=== PATIENT | male | born 1970 | race Two or more races ===

== ENCOUNTER 2023-05-03 15:35 | Inpatient (IN) | payer OTHER ==
[~2023-05-03] VITALS: Ht 167.6 cm; Wt 82.0 kg
[2023-05-03 16:22] VITALS: RESP 16; O2SAT 95
[2023-05-03] MEDS ORDERED: ONDANSETRON HCL 4 MG/2 ML VIAL IV PRN (17:00)
[2023-05-03 18:04] VITALS: BP 136/87; PULSE 55; RESP 16; TEMP 98; O2SAT 95
[2023-05-03 20:05] LABS: Basophils # (auto) 0 10 ^3/uL (0-0.2); Basophils % (auto) 0.3 % (0.0-2.0); Eosinophils # (auto) 0.2 10 ^3/uL (0-0.8); Eosinophils % (auto) 2.5 % (0.0-7.0); Hematocrit 45.3 % (41.0-53.0); Hemoglobin 15.9 g/dL (13.5-17.5); Lymphocytes # (auto) 4.1 10 ^3/uL (0.4-5.4); Lymphocytes % (auto) 44.8 % (10.0-50.0); Mean Corpuscular Hemoglobin 29.6 pg (28.0-32.0); Mean Corpuscular Hgb Conc. 35.1 g/dL (32.0-36.0); Mean Corpuscular Volume 84.3 fL (80.0-100.0); Monocytes # (auto) 0.5 10 ^3/uL (0-1.3); Monocytes % (auto) 4.9 % (0.0-12.0); Neutrophils # (auto) 4.4 10 ^3/uL (1.6-8.6); Neutrophils % (auto) 47.5 % (37.0-80.0); Nucleated Red Blood Cells % 0.4 %; Red Blood Cells 5.38 10^6/uL (4.5-5.90); Red Cell Distribution Width 14.4 % (11.8-14.3); White Blood Cell 9.3 10^3/uL (4.4-10.8)
[2023-05-03 20:19] LABS: INR 1.13 (0.9-1.15); Partial Thromboplastin Time 33.1 SEC (24.5-34.5); Prothrombin Time 11.8 sec (9.3-11.8)
[2023-05-03 20:29] LABS: Alanine Aminotransferase 44 U/L (7-40); Albumin 4.5 g/dL (3.2-4.8); Alkaline Phosphatase 82 U/L (46-116); Anion Gap 6 (5-15); Aspartate Aminotransferase 21 U/L (13-40); BUN/Creatinine Ratio 12.2 (10.0-20.0); Bilirubin, Total 0.9 mg/dL (0.2-1.0); Blood Urea Nitrogen 14 mg/dL (9-23); Calcium 9.6 mg/dL (8.7-10.4); Carbon Dioxide 26 mmol/L (20-30); Chloride 105 mmol/L (98-107); Glucose 143 mg/dL (74-106); Potassium 3.7 mmol/L (3.5-5.1); Sodium 137 mmol/L (136-145); Total Protein 8.2 g/dL (5.7-8.2)
[2023-05-03 21:53] VITALS: BP 118/88; PULSE 72; RESP 20; TEMP 98.3; O2SAT 93
[2023-05-04] VITALS (7 sets, daily range): BP systolic 112–145; BP diastolic 78–95; PULSE 61–81; RESP 16–20; TEMP 97.6–98.2; O2SAT 93–95
[2023-05-04 05:43] LABS: Basophils # (auto) 0 10 ^3/uL (0-0.2); Basophils % (auto) 0.6 % (0.0-2.0); Eosinophils # (auto) 0.2 10 ^3/uL (0-0.8); Eosinophils % (auto) 2.7 % (0.0-7.0); Hematocrit 45.1 % (41.0-53.0); Hemoglobin 15.5 g/dL (13.5-17.5); Lymphocytes % (auto) 47.6 % (10.0-50.0); Mean Corpuscular Hemoglobin 29.3 pg (28.0-32.0); Mean Corpuscular Hgb Conc. 34.4 g/dL (32.0-36.0); Monocytes # (auto) 0.7 10 ^3/uL (0-1.3); Monocytes % (auto) 8.8 % (0.0-12.0); Neutrophils # (auto) 3.4 10 ^3/uL (1.6-8.6); Neutrophils % (auto) 40.3 % (37.0-80.0); Nucleated Red Blood Cells % 0.2 %; Red Blood Cells 5.31 10^6/uL (4.5-5.90); Red Cell Distribution Width 14.5 % (11.8-14.3); White Blood Cell 8.4 10^3/uL (4.4-10.8)
[2023-05-04] MEDS: ENOXAPARIN SOD 40 MG/0.4 ML SYRINGE SC SCH (10:04)
[2023-05-04] MEDS: PANTOPRAZOLE 40 MG TAB PO SCH (10:04)
[2023-05-04] MEDS: traMADol HCL 50 MG TAB PO PRN (12:39)
[2023-05-04] MEDS ORDERED: ACETAMINOPHEN 325 MG TAB PO PRN (22:00)
[2023-05-04] MEDS: ACETAMINOPHEN 325 MG TAB PO PRN (23:54)
[2023-05-05 05:00] VITALS: BP 121/87; PULSE 63; RESP 18; TEMP 97.8; O2SAT 98
[2023-05-05 08:30] VITALS: BP 143/91; PULSE 76; RESP 20; TEMP 97.6
[2023-05-05 08:39] VITALS: BP 143/91; PULSE 76; RESP 20; TEMP 97.6; O2SAT 96
[2023-05-05] MEDS: PANTOPRAZOLE 40 MG TAB PO SCH ×2 (09:02→10:00)
[2023-05-05] MEDS: ACETAMINOPHEN 325 MG TAB PO PRN ×2 (09:05→18:49)
[2023-05-05] MEDS: ENOXAPARIN SOD 40 MG/0.4 ML SYRINGE SC SCH (09:54)
[2023-05-05 12:34] VITALS: BP 126/90; PULSE 69; RESP 20; TEMP 98.1; O2SAT 97
[2023-05-05 16:36] VITALS: BP 117/87; PULSE 75; RESP 20; TEMP 98; O2SAT 93
[2023-05-05 22:00] VITALS: BP 137/84; PULSE 64; RESP 18; TEMP 97.7; O2SAT 92
[2023-05-06] MEDS: ACETAMINOPHEN 325 MG TAB PO PRN ×4 (00:23→18:30)
[2023-05-06 05:00] VITALS: BP 142/87; PULSE 58; RESP 18; TEMP 97.6; O2SAT 95
[2023-05-06 07:06] LABS: Free Thyroxine Index 2.8 (1.2-4.9); Thyroxine (T4) 10.3 ug/dL (4.5-12.0)
[2023-05-06 09:00] VITALS: BP 132/95; PULSE 77; RESP 17; TEMP 97.9; O2SAT 96
[2023-05-06] MEDS: ENOXAPARIN SOD 40 MG/0.4 ML SYRINGE SC SCH (09:36)
[2023-05-06] MEDS: PANTOPRAZOLE 40 MG TAB PO SCH (09:37)
[2023-05-06 12:51] VITALS: BP 121/89; PULSE 65; RESP 17; TEMP 97.5; O2SAT 93
[2023-05-06 17:00] VITALS: BP 129/93; PULSE 68; RESP 17; TEMP 97.7; O2SAT 96
[2023-05-06 20:00] VITALS: PULSE 68; RESP 18; O2SAT 95
[2023-05-06 22:00] VITALS: BP 138/89; PULSE 68; RESP 18; TEMP 98; O2SAT 95
[2023-05-07] VITALS (7 sets, daily range): BP systolic 108–176; BP diastolic 73–91; PULSE 60–79; RESP 17–19; TEMP 97.9–98.6; O2SAT 95–97
[2023-05-07] MEDS: ACETAMINOPHEN 325 MG TAB PO PRN ×3 (03:51→21:38)
[2023-05-07] MEDS: ENOXAPARIN SOD 40 MG/0.4 ML SYRINGE SC SCH (09:27)
[2023-05-07] MEDS: PANTOPRAZOLE 40 MG TAB PO SCH (09:27)
[2023-05-07] MEDS ORDERED: GADOTERATE MEG 10 MMOL/20ml INJ (0.5MMOL/ml) IV ONE (09:55)
[2023-05-08] VITALS (7 sets, daily range): BP systolic 109–129; BP diastolic 84–100; PULSE 64–111; RESP 17–20; TEMP 97.5–98.8; O2SAT 93–96
[2023-05-08] MEDS: ENOXAPARIN SOD 40 MG/0.4 ML SYRINGE SC SCH (08:58)
[2023-05-08] MEDS: PANTOPRAZOLE 40 MG TAB PO SCH (08:59)
[2023-05-09] VITALS (7 sets, daily range): BP systolic 112–146; BP diastolic 70–91; PULSE 63–79; RESP 14–20; TEMP 97.4–98.3; O2SAT 93–96
[2023-05-09] MEDS: ACETAMINOPHEN 325 MG TAB PO PRN ×2 (02:15→17:12)
[2023-05-09] MEDS: PANTOPRAZOLE 40 MG TAB PO SCH (11:17)
[2023-05-09] MEDS: ENOXAPARIN SOD 40 MG/0.4 ML SYRINGE SC SCH (11:17)
[2023-05-10 05:00] VITALS: BP 126/87; PULSE 70; RESP 18; TEMP 98; O2SAT 97
[2023-05-10 09:17] VITALS: BP 121/55; PULSE 89; RESP 18; TEMP 97.4; O2SAT 95
[2023-05-10] MEDS: ENOXAPARIN SOD 40 MG/0.4 ML SYRINGE SC SCH (11:10)
[2023-05-10] MEDS: PANTOPRAZOLE 40 MG TAB PO SCH (11:10)
[2023-05-10] MEDS: ACETAMINOPHEN 325 MG TAB PO PRN ×2 (11:14→19:46)
[2023-05-10 13:00] VITALS: BP 126/94; PULSE 89; RESP 16; TEMP 97.2; O2SAT 95
[2023-05-10 13:27] VITALS: BP 126/94; PULSE 84; RESP 16; TEMP 97.2; O2SAT 95
[2023-05-10 19:30] VITALS: PULSE 81; RESP 17; O2SAT 95
[2023-05-10 22:00] VITALS: BP 123/93; PULSE 70; RESP 18; TEMP 97.8; O2SAT 94
[2023-05-11] VITALS (7 sets, daily range): BP systolic 127–144; BP diastolic 75–107; PULSE 64–95; RESP 17–20; TEMP 97.8–98.5; O2SAT 91–100
[2023-05-11] MEDS: ENOXAPARIN SOD 40 MG/0.4 ML SYRINGE SC SCH (11:06)
[2023-05-11] MEDS: PANTOPRAZOLE 40 MG TAB PO SCH (11:06)
[2023-05-11] MEDS: traMADol HCL 50 MG TAB PO PRN (21:57)
[2023-05-12 05:00] VITALS: BP 97/68; PULSE 54; RESP 19; TEMP 98.4; O2SAT 94
[2023-05-12 08:00] VITALS: BP 125/88; PULSE 56; RESP 18; TEMP 97.8; O2SAT 100
[2023-05-12 09:00] VITALS: BP 125/88; PULSE 56; RESP 18; TEMP 97.8; O2SAT 99
[2023-05-12] MEDS: ENOXAPARIN SOD 40 MG/0.4 ML SYRINGE SC SCH (09:31)
[2023-05-12] MEDS: PANTOPRAZOLE 40 MG TAB PO SCH (09:31)
[2023-05-12] MEDS: ACETAMINOPHEN 325 MG TAB PO PRN (09:35)
[2023-05-12 17:00] VITALS: BP 121/87; PULSE 65; RESP 20; TEMP 98.8; O2SAT 98
[2023-05-12 18:00] VITALS: O2SAT 95
[2023-05-12] MEDS: traMADol HCL 50 MG TAB PO PRN (21:25)
[2023-05-12 22:00] VITALS: BP 117/80; PULSE 64; RESP 16; TEMP 97.9; O2SAT 96
[2023-05-13] VITALS (7 sets, daily range): BP systolic 104–145; BP diastolic 66–96; PULSE 56–87; RESP 16–20; TEMP 97.5–98.6; O2SAT 90–100
[2023-05-13] MEDS: PANTOPRAZOLE 40 MG TAB PO SCH (11:11)
[2023-05-13] MEDS: ENOXAPARIN SOD 40 MG/0.4 ML SYRINGE SC SCH (11:12)
[2023-05-13] MEDS: ACETAMINOPHEN 325 MG TAB PO PRN (19:43)
[2023-05-13] MEDS: PYRIDOstigmine BROMIDE 60 MG TAB PO SCH (19:44)
[2023-05-14 05:00] VITALS: BP 122/71; PULSE 71; RESP 18; TEMP 98.3; O2SAT 96
[2023-05-14] MEDS: PYRIDOstigmine BROMIDE 60 MG TAB PO SCH ×2 (05:42→14:40)
[2023-05-14 08:00] VITALS: BP 117/82; PULSE 74; RESP 18; RESP 20; TEMP 98.6; O2SAT 96
[2023-05-14 09:00] VITALS: BP 109/68; PULSE 62; RESP 20; TEMP 97.9; O2SAT 96
[2023-05-14 13:00] VITALS: BP 109/71; PULSE 75; RESP 20; TEMP 98; O2SAT 94
[2023-05-14] MEDS: PANTOPRAZOLE 40 MG TAB PO SCH (14:40)
[2023-05-14] MEDS: ENOXAPARIN SOD 40 MG/0.4 ML SYRINGE SC SCH (14:40)
== END 2023-05-14 18:51 | DRG 57 ==
LOC: EEVIPCON 15:36 → WEST WING 15:36 → UNDOADMIN 15:36 → EEVIPCON 16:54 → WEST WING 16:54
PROVIDERS: ADMIT Internal Medicine; ATTEND Internal Medicine
DX: G70.01 Myasthenia gravis with (acute) exacerbation (principal); M48.02 Spinal stenosis, cervical region; R13.10 Dysphagia, unspecified; Z82.5 Family history of asthma and other chronic lower respiratory diseases; Z88.0 Allergy status to penicillin
CPT/HCPCS: 36415; 70551; 71045; 72141; 72142; 72148; 80053; 84443; 85025; 85610; 85730; 86703; 86803; 94010; 94640; 97110; 97116; 97163; 97530; G0378; J1561

== ENCOUNTER 2023-06-19 15:49 | Inpatient (IN) | payer OTHER ==
[~2023-06-19] VITALS: Ht 167.6 cm; Wt 84.0 kg
[2023-06-19 17:01] LABS: Basophils # (auto) 0 10 ^3/uL (0-0.2); Basophils % (auto) 0.5 % (0.0-2.0); Eosinophils # (auto) 0.2 10 ^3/uL (0-0.8); Eosinophils % (auto) 2.3 % (0.0-7.0); Hematocrit 45.3 % (41.0-53.0); Hemoglobin 15.3 g/dL (13.5-17.5); Lymphocytes # (auto) 4.4 10 ^3/uL (0.4-5.4); Lymphocytes % (auto) 49.9 % (10.0-50.0); Mean Corpuscular Hemoglobin 29.2 pg (28.0-32.0); Mean Corpuscular Hgb Conc. 33.8 g/dL (32.0-36.0); Mean Corpuscular Volume 86.4 fL (80.0-100.0); Monocytes # (auto) 0.7 10 ^3/uL (0-1.3); Monocytes % (auto) 8.3 % (0.0-12.0); Neutrophils # (auto) 3.4 10 ^3/uL (1.6-8.6); Nucleated Red Blood Cells % 0.3 %; Red Blood Cells 5.23 10^6/uL (4.5-5.90); Red Cell Distribution Width 14.7 % (11.8-14.3); White Blood Cell 8.8 10^3/uL (4.4-10.8)
[2023-06-19 17:23] LABS: Alanine Aminotransferase 45 U/L (7-40); Albumin 4.6 g/dL (3.2-4.8); Alkaline Phosphatase 88 U/L (46-116); Anion Gap 7 (5-15); Aspartate Aminotransferase 28 U/L (13-40); BUN/Creatinine Ratio 7.2 (10.0-20.0); Blood Urea Nitrogen 7 mg/dL (9-23); Calcium 9.7 mg/dL (8.7-10.4); Carbon Dioxide 25 mmol/L (20-30); Chloride 107 mmol/L (98-107); Glucose 83 mg/dL (74-106); Potassium 3.7 mmol/L (3.5-5.1); Sodium 139 mmol/L (136-145)
[2023-06-19 17:24] LABS: Total Protein 8.2 g/dL (5.7-8.2)
[2023-06-19 21:16] LABS: Urine Bacteria NONE SEEN /hpf (None Seen); Urine Blood Negative /uL (Negative); Urine Clarity Clear (Clear); Urine Color Yellow (Yellow); Urine Mucus FEW (None Seen); Urine Protein, UAD Negative (Negative); Urine Specific Gravity 1.023 (1.001-1.035); Urine WBC <1 /hpf (0 - 3)
[2023-06-19] MEDS ORDERED: MORPHINE SULFATE INJ 2 MG/ml SYRG IV PRN (21:30)
[2023-06-19] MEDS ORDERED: D5W/SOD CHL 0.45% 1,000 ML IV ONE (21:30)
[2023-06-19] MEDS ORDERED: NITROGLYCERIN 0.4 MG SL TAB SL PRN (21:30)
[2023-06-19] MEDS: PYRIDOstigmine BROMIDE 60 MG TAB PO SCH (22:00)
[2023-06-19] MEDS: ATORVASTATIN 20 MG TAB PO SCH (22:17)
[2023-06-20] MEDS: PROPRANOLOL HCL 20 MG TAB PO SCH (10:09)
[2023-06-20 10:12] VITALS: BP 147/102; PULSE 67; RESP 15; RESP 18; TEMP 97.7; O2SAT 97
[2023-06-20] MEDS: PYRIDOstigmine BROMIDE 60 MG TAB PO SCH ×3 (11:44→21:53)
[2023-06-20 16:32] VITALS: BP 134/89; PULSE 57; RESP 16; TEMP 98.7; O2SAT 99
[2023-06-20] MEDS: ATORVASTATIN 20 MG TAB PO SCH (21:52)
[2023-06-20 22:00] VITALS: BP 105/78; PULSE 53; RESP 20; TEMP 97.7; O2SAT 96
[2023-06-21] VITALS (7 sets, daily range): BP systolic 89–128; BP diastolic 62–87; PULSE 55–73; RESP 16–20; TEMP 36.3; O2SAT 91–97
[2023-06-21] MEDS: PYRIDOstigmine BROMIDE 60 MG TAB PO SCH ×3 (06:00→17:38)
[2023-06-21] MEDS: PROPRANOLOL HCL 20 MG TAB PO SCH (09:56)
[2023-06-21] MEDS ORDERED: Ensure HIGH Protein Vanilla 8oz Bottle PO SCH (18:00)
== END 2023-06-21 17:45 | DRG 57 ==
LOC: EEVIPCON 15:49 → ER 15:49 → OVERFLOW 21:30 → WEST WING 06-20 09:29
PROVIDERS: ADMIT Internal Medicine; ATTEND Internal Medicine
DX: G70.01 Myasthenia gravis with (acute) exacerbation (principal); R53.1 Weakness; Z76.5 Malingerer [conscious simulation]
CPT/HCPCS: 36415; 70450; 80053; 81001; 82962; 85025; G0378